=== PATIENT | female | born 1970 | race Caucasian/White ===

== ENCOUNTER 2016-12-27 11:21 | Emergency (ER) | payer MEDICAID ==
[2016-12-27] MEDS ORDERED: CEFTRIAXONE 1 GM VIAL ONE (13:34)
[2016-12-27] MEDS ORDERED: KETOROLAC 30 MG/ML VIAL ONE (13:34)
[2016-12-27] MEDS ORDERED: SODIUM CHLORIDE 0.9% 1,000 ML ONE (13:35)
[2016-12-27] MEDS ORDERED: SODIUM CHLORIDE 0.9% 100 ML IV ONE (13:35)
== END 2016-12-27 16:00 | disposition home or self-care (01) ==
LOC: ER 11:21
DX: N10 Acute pyelonephritis (principal); Z79.899 Other long term (current) drug therapy; F17.210 Nicotine dependence, cigarettes, uncomplicated; F32.9 Major depressive disorder, single episode, unspecified; F41.1 Generalized anxiety disorder
CPT/HCPCS: 36415; 74176; 80053; 81001; 83690; 84703; 85025; 87077; 87088; 87186; 96361; 96365; 96375